=== PATIENT | female | born 1935 | race Caucasian/White ===

== ENCOUNTER → 2017-06-04 | Outpatient (CLI) | payer MEDICARE ==
[~2017-06-04] MED LIST: BUMEX0.5 MG; BUSPAR5 MG; COLACE 100100 MG/CAP; COUMADIN 3MG3 MG/TAB; PRILOSEC 20MG20 MG; REGLAN 10MG10 MG/TAB PO; SEROQUEL 2525 MG/TAB; [UNRECOGNIZED DRUG - OTHER] PO
== END ==
LOC: COL.RAD 15:11
DX: M81.0 Age-related osteoporosis without current pathological fracture (principal); M48.54XA Collapsed vertebra, not elsewhere classified, thoracic region, initial encounter for fracture; R07.9 Chest pain, unspecified; R06.02 Shortness of breath; R06.2 Wheezing